=== PATIENT | female | born 1990 | race Caucasian/White ===

== ENCOUNTER 2017-08-10 14:32 | Emergency (ER) | payer OTHER ==
[~2017-08-10] VITALS: Ht 152.4 cm; Wt 57.1 kg
[~2017-08-10 14:32] MED LIST: ALBUTEROL INHAL17 GM IH; AZITHROMYCIN 2250 MG PO; IBUPROFEN 600600 M1 PO; NOHOMEMEDICATIONS; NORCO 5-325 TA1 EACH PO; PROZAC20 MG PO; TEGRETOL XR100 MG PO
[2017-08-10] MEDS ORDERED: IBUPROFEN 800800 M1 PO (16:11)
[2017-08-10 16:37] VITALS: BP 113/83
== END 2017-08-10 16:30 | disposition home or self-care (01) ==
LOC: ER 14:32
DX: S93.601A Unspecified sprain of right foot, initial encounter (principal); F17.210 Nicotine dependence, cigarettes, uncomplicated; W50.2XXA Accidental twist by another person, initial encounter; Y93.89 Activity, other specified; Y92.89 Other specified places as the place of occurrence of the external cause; Y99.8 Other external cause status